=== PATIENT | male | born 1970 | race Caucasian/White ===

== ENCOUNTER 2018-11-29 12:09 | Inpatient (IN) | payer OTHER ==
[2018-11-29 12:50] VITALS: BMI 43.0
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
[2018-11-29] MEDS ORDERED: MELATONIN 5 MG TABLETS PO PRN (15:40)
[2018-11-29] MEDS ORDERED: MAGNESIUM CITRATE 300 ML BOTTLE PO PRN (15:40)
[2018-11-29] MEDS ORDERED: MAG HYDROX/AL HYDROX/SIMETH 30 ML UNIT-DOSE CUP PO PRN (15:40)
[2018-11-29] MEDS ORDERED: MENTHOL/PHENOL 1 EACH UD MM PRN (15:40)
[2018-11-29] MEDS ORDERED: ACETAMINOPHEN 325 MG TABLET (FP) PO PRN ×2 (15:40)
[2018-11-29] MEDS ORDERED: MAGNESIUM HYDROX 2400MG/30ML ORAL SUSPENSION 30 ML CUP PO PRN (15:40)
[2018-11-29] MEDS ORDERED: BISMUTH SUBSALICYLATE 524 MG/30 ML UD PO PRN (15:40)
[2018-11-29] MEDS ORDERED: METHOCARBAMOL 500 MG TABLET PO PRN (15:40)
[2018-11-29] MEDS ORDERED: IBUPROFEN 400 MG TABLET (FP) PO PRN (15:40)
[2018-11-29] MEDS ORDERED: hydrOXYzine PAMOATE 25 MG CAPSULE (FP) PO PRN (15:40)
[2018-11-29] MEDS ORDERED: chlordiazePOXIDE HCL 25 MG CAPSULE PO PRN (15:41)
[2018-11-29] MEDS: chlordiazePOXIDE HCL 25 MG CAPSULE PO SCH ×2 (17:37→22:38)
[2018-11-29] MEDS: PANTOPRAZOLE 40 MG TABLET (FP) PO SCH (17:38)
[2018-11-29] MEDS: LISINOPRIL 5 MG TABLET (FP) PO SCH (18:01)
[2018-11-29] MEDS: THIAMINE HCL 100 MG TABLET (FP) PO SCH (22:37)
[2018-11-30] MEDS ORDERED: METHADONE HCL 10 MG TABLET PO SCH (06:00)
[2018-11-30] MEDS ORDERED: METHADONE HCL 10 MG TABLET ONE (06:33)
[2018-11-30] MEDS ORDERED: METHADONE HCL 40 MG DISPERSABLE TABLET ONE (06:34)
[2018-11-30] MEDS: METHADONE 40 MG, METHADONE 30 MG PO SCH (06:39)
[2018-11-30] MEDS: chlordiazePOXIDE HCL 25 MG CAPSULE PO SCH ×4 (06:40→22:04)
[2018-11-30] MEDS: PANTOPRAZOLE 40 MG TABLET (FP) PO SCH (10:21)
[2018-11-30] MEDS: LISINOPRIL 5 MG TABLET (FP) PO SCH (10:21)
[2018-11-30] MEDS: PRENATAL VITAMINS W/ FOLIC ACID TABLET (FP) PO SCH (10:21)
[2018-11-30 10:36] LABS: HEMATOCRIT 37.6 % (35.4-49); HEMOGLOBIN 12.2 GM/dL (11.7-16.9); MCH 28.8 pg (25.7-33.7); MCHC 32.4 g/dl (32.0-35.9); MEAN CELL VOLUME 88.9 fl (80-96); MEAN PLT VOLUME 9.1 fl (7.5-11.1); PLATELET COUNT 114 K/MM3 (134-434); RBC 4.23 M/mm3 (4.00-5.60); RDW 15.1 % (11.9-15.9); WHITE BLOOD COUNT 3.3 K/mm3 (4.0-10.0)
[2018-11-30 10:52] LABS: ALBUMIN 3.4 g/dl (3.4-5.0); BILIRUBIN,TOTAL 0.5 mg/dL (0.2-1); BLOOD UREA NITROGEN 17.4 mg/dL (7-18); CALCIUM 8.8 mg/dL (8.5-10.1); POTASSIUM 4.3 mmol/L (3.5-5.1); TOT PROT 7.1 g/dl (6.4-8.2)
--- NOTE | 2018-11-30 11:10 | PN ---
[facility] CIWA - CIWA Score Nausea/Vomitin-Mild Nausea/No Vomiting Muscle Tremors: 2 Anxiety: 2 Agitation: 2 Paroxysmal Sweats: No Perspiration Orientation: 0-Oriented Tacttile Disturbances: 1-Very Mild Itch/Numbness Auditory Disturbances: 0-None Visual Disturbances: 0-None Headache: 2-Mild CIWA-Ar Total Score: 10 S Progress Note (SOAP) Subjective: alert,irritable,anxious,interrupted sleep,tremor,pain in the body Objective: 11/30/18 11:09 Vital Signs Temperature 99.1 F 11/30/18 09:38 Pulse Rate 61 11/30/18 09:38 Respiratory Rate 16 11/30/18 09:38 Blood Pressure 136/85 11/30/18 09:38 O2 Sat by Pulse Oximetry (%) Laboratory Last Values WBC 3.3 K/mm3 (4.0-10.0) L 11/30/18 07:20 RBC 4.23 M/mm3 (4.00-5.60) 11/30/18 07:20 Hgb 12.2 GM/dL (11.7-16.9) 11/30/18 07:20 Hct 37.6 % (35.4-49) 11/30/18 07:20 MCV 88.9 fl (80-96) 11/30/18 07:20 MCH 28.8 pg (25.7-33.7) 11/30/18 07:20 MCHC 32.4 g/dl (32.0-35.9) 11/30/18 07:20 RDW 15.1 % (11.9-15.9) 11/30/18 07:20 Plt Count 114 K/MM3 (134-434) L 11/30/18 07:20 MPV 9.1 fl (7.5-11.1) 11/30/18 07:20 Sodium 142 mmol/L (136-145) 11/30/18 07:20 Potassium 4.3 mmol/L (3.5-5.1) 11/30/18 07:20 Chloride 106 mmol/L (98-107) 11/30/18 07:20 Carbon Dioxide 30 mmol/L (21-32) 11/30/18 07:20 Anion Gap 7 MMOL/L (8-16) L 11/30/18 07:20 BUN 17.4 mg/dL (7-18) 11/30/18 07:20 Creatinine 1.0 mg/dL (0.55-1.3) 11/30/18 07:20 Est GFR (CKD-EPI)AfAm 101.98 11/30/18 07:20 Est GFR (CKD-EPI)NonAf 87.99 11/30/18 07:20 Random Glucose 115 mg/dL (74-106) H 11/30/18 07:20 Calcium 8.8 mg/dL (8.5-10.1) 11/30/18 07:20 Total Bilirubin 0.5 mg/dL (0.2-1) 11/30/18 07:20 AST 37 U/L (15-37) 11/30/18 07:20 ALT 68 U/L (13-61) H 11/30/18 07:20 Alkaline Phosphatase 88 U/L (45-117) 11/30/18 07:20 Total Protein 7.1 g/dl (6.4-8.2) 11/30/18 07:20 Albumin 3.4 g/dl (3.4-5.0) 11/30/18 07:20 11/30/18 11:09 rpr pending Assessment: 11/30/18 11:10 withdrawal symptom Plan: continue detox librium regimen
[2018-11-30] MEDS: THIAMINE HCL 100 MG TABLET (FP) PO SCH (22:05)
[2018-12-01] MEDS ORDERED: METHADONE HCL 10 MG TABLET ONE (04:45)
[2018-12-01] MEDS ORDERED: METHADONE HCL 40 MG DISPERSABLE TABLET ONE (04:46)
[2018-12-01] MEDS: chlordiazePOXIDE HCL 25 MG CAPSULE PO SCH ×3 (05:17→18:00)
[2018-12-01] MEDS: METHADONE 40 MG, METHADONE 30 MG PO SCH (05:17)
[2018-12-01] MEDS: PRENATAL VITAMINS W/ FOLIC ACID TABLET (FP) PO SCH (10:50)
[2018-12-01] MEDS: LISINOPRIL 5 MG TABLET (FP) PO SCH (10:50)
[2018-12-01] MEDS: PANTOPRAZOLE 40 MG TABLET (FP) PO SCH (10:50)
--- NOTE | 2018-12-01 12:04 | PN ---
S CIWA - CIWA Score Nausea/Vomitin-No Nausea/No Vomiting Muscle Tremors: 2 Anxiety: 3 Agitation: 0-Normal Activity Paroxysmal Sweats: 2 Orientation: 0-Oriented Tacttile Disturbances: 0-None Auditory Disturbances: 0-None Visual Disturbances: 0-None Headache: 2-Mild CIWA-Ar Total Score: 9 BHS Progress Note (SOAP) Subjective: c/o sweats, headache, and anxiety. Objective: 12/01/18 12:05 Vital Signs 12/01/18 12/01/18 06:37 11:41 Temperature 98.1 F 98.1 F Pulse Rate 74 48 L Respiratory 20 16 Rate Blood Pressure 124/77 120/62 Lab Results WBC 3.3 K/mm3 (4.0-10.0) L 11/30/18 07:20 RBC 4.23 M/mm3 (4.00-5.60) 11/30/18 07:20 Hgb 12.2 GM/dL (11.7-16.9) 11/30/18 07:20 Hct 37.6 % (35.4-49) 11/30/18 07:20 MCV 88.9 fl (80-96) 11/30/18 07:20 MCHC 32.4 g/dl (32.0-35.9) 11/30/18 07:20 RDW 15.1 % (11.9-15.9) 11/30/18 07:20 Plt Count 114 K/MM3 (134-434) L 11/30/18 07:20 Sodium 142 mmol/L (136-145) 11/30/18 07:20 Potassium 4.3 mmol/L (3.5-5.1) 11/30/18 07:20 Chloride 106 mmol/L (98-107) 11/30/18 07:20 Carbon Dioxide 30 mmol/L (21-32) 11/30/18 07:20 Anion Gap 7 MMOL/L (8-16) L 11/30/18 07:20 BUN 17.4 mg/dL (7-18) 11/30/18 07:20 Creatinine 1.0 mg/dL (0.55-1.3) 11/30/18 07:20 Random Glucose 115 mg/dL (74-106) H 11/30/18 07:20 Calcium 8.8 mg/dL (8.5-10.1) 11/30/18 07:20 Labs noted. Assessment: 12/01/18 12:05 AOX3, in no acute respiratory distress. Full ROM, ambulating in the unit. withdrawal symptoms. Plan: continue detox.
[2018-12-01 17:29] VITALS: BP 136/60; PULSE 52; TEMP 97.9
--- NOTE | 2018-12-01 21:04 | PN ---
[facility] Progress Note Note: patient did not want to complete treatment,all attempts to convince patient to stay with no available,risk of relapsing is high,patient understood, signed release ama,left the unit in stable condition,to call 911 if not feeling well
--- NOTE | 2018-12-01 21:05 | DS ---
[facility] Detox Discharge Summary Admission Date: 11/29/18 Discharge Date: 12/01/18 - History Present History: Alcohol Dependence, Cocaine Dependence, Sedative Dependence, MMTP Additional Comments: ptient signed release ama Pertinent Past History: nicotine dependence - Physical Exam Results Vital Signs: Vital Signs Temperature 97.9 F 12/01/18 17:27 Pulse Rate 52 L 12/01/18 17:27 Respiratory Rate 16 12/01/18 17:27 Blood Pressure 136/60 12/01/18 17:27 O2 Sat by Pulse Oximetry (%) Pertinent Admission Physical Exam Findings: withdrawal signs and symptom Laboratory Last Values WBC 3.3 K/mm3 (4.0-10.0) L 11/30/18 07:20 RBC 4.23 M/mm3 (4.00-5.60) 11/30/18 07:20 Hgb 12.2 GM/dL (11.7-16.9) 11/30/18 07:20 Hct 37.6 % (35.4-49) 11/30/18 07:20 MCV 88.9 fl (80-96) 11/30/18 07:20 MCH 28.8 pg (25.7-33.7) 11/30/18 07:20 MCHC 32.4 g/dl (32.0-35.9) 11/30/18 07:20 RDW 15.1 % (11.9-15.9) 11/30/18 07:20 Plt Count 114 K/MM3 (134-434) L 11/30/18 07:20 MPV 9.1 fl (7.5-11.1) 11/30/18 07:20 Sodium 142 mmol/L (136-145) 11/30/18 07:20 Potassium 4.3 mmol/L (3.5-5.1) 11/30/18 07:20 Chloride 106 mmol/L (98-107) 11/30/18 07:20 Carbon Dioxide 30 mmol/L (21-32) 11/30/18 07:20 Anion Gap 7 MMOL/L (8-16) L 11/30/18 07:20 BUN 17.4 mg/dL (7-18) 11/30/18 07:20 Creatinine 1.0 mg/dL (0.55-1.3) 11/30/18 07:20 Est GFR (CKD-EPI)AfAm 101.98 11/30/18 07:20 Est GFR (CKD-EPI)NonAf 87.99 11/30/18 07:20 Random Glucose 115 mg/dL (74-106) H 11/30/18 07:20 Calcium 8.8 mg/dL (8.5-10.1) 11/30/18 07:20 Total Bilirubin 0.5 mg/dL (0.2-1) 11/30/18 07:20 AST 37 U/L (15-37) 11/30/18 07:20 ALT 68 U/L (13-61) H 11/30/18 07:20 Alkaline Phosphatase 88 U/L (45-117) 11/30/18 07:20 Total Protein 7.1 g/dl (6.4-8.2) 11/30/18 07:20 Albumin 3.4 g/dl (3.4-5.0) 11/30/18 07:20 RPR Titer Nonreactive (NONREACTIVE) 11/30/18 07:20 - Medication Discharge Medications: Ambulatory Orders NK [No Known Home Medication] 11/29/18 - Diagnosis (1) Sedative hypnotic or anxiolytic dependence Status: Acute (2) Alcohol use disorder Status: Chronic (3) Cocaine dependence Status: Chronic Qualifiers: Substance use status: uncomplicated Qualified Code(s): F14.20 - Cocaine dependence, uncomplicated (4) Nicotine dependence Status: Chronic Qualifiers: Nicotine product type: cigarettes (5) Opioid dependence on agonist therapy Status: Chronic - AMA Did Patient Leave Against Medical Advice: Yes
[2018-12-02] MEDS ORDERED: chlordiazePOXIDE HCL 10 MG CAPSULE PO PRN
[2018-12-02] MEDS ORDERED: chlordiazePOXIDE HCL 10 MG CAPSULE PO SCH (05:00)
[2018-12-03] MEDS ORDERED: chlordiazePOXIDE HCL 10 MG CAPSULE PO SCH (05:00)
[2018-12-04] MEDS ORDERED: chlordiazePOXIDE HCL 10 MG CAPSULE PO ONE (05:00)
== END 2018-12-01 18:20 | disposition left against medical advice (07) | DRG 770 ==
LOC: YASAS 12:09 → Y3N 16:23 → Y6N 19:01
PROVIDERS: ADMIT Allergy & Immunology; ATTEND Allergy & Immunology
PROC: HZ2ZZZZ Detoxification Services for Substance Abuse Treatment (ICD-10-PCS; principal; 2018-11-29)
DX: F10.230 Alcohol dependence with withdrawal, uncomplicated (principal); F11.20 Opioid dependence, uncomplicated; F13.20 Sedative, hypnotic or anxiolytic dependence, uncomplicated; F14.20 Cocaine dependence, uncomplicated; F17.210 Nicotine dependence, cigarettes, uncomplicated
CPT/HCPCS: 36415; 80053; 85027; 86593